=== PATIENT | female | born 2000 | race Caucasian/White ===

== ENCOUNTER 2020-12-19 17:15 | Emergency (ER) | payer SELFPAY ==
--- NOTE | 2020-12-19 17:20 | ED.EAR ---
HPI - Ear Problem General Chief complaint: Ear Stated complaint: Ear Infection Time Seen by Provider: 12/19/20 17:35 Source: patient and RN notes reviewed History of Present Illness HPI Narrative: Patient is a 20-year-old female who presents the urgent care with complaints of bilateral ear pain. Patient states that it started in the left ear and this morning and developed into the right. Patient states that she did have some intermittent dizziness for approximately 3 hours which is since subsided. Patient also reports of a headache in which she has not taken anything [id number] for. Patient denies of any other upper respiratory symptoms. Patient denies of any known Covid contact. Denies of any cough, shortness of breath or chest pain. No other acute complaints. No acute distress noted. Patient aware of the plan of care. Some parts of this dictation were generated by voice recognition software and may contain typographical and/or grammatical inaccuracies. Related Data Home Medications Medication Instructions Recorded Confirmed No Home Medications 12/19/20 12/19/20 Allergies Allergy/AdvReac Type Severity Reaction Status Date / Time No Known Allergies Allergy Verified 12/19/20 17:42 Review of Systems Review of Systems: Narrative: CONSTITUTIONAL: Denies fever, chills, or sweats. EYES: Denies visual changes, redness, or discharge. ENT: Reports of bilateral otalgia CARDIOVASCULAR: Denies chest pain, palpitations, or edema. RESPIRATORY: Denies cough or dyspnea. GASTROINTESTINAL: Denies abdominal pain, nausea, vomiting, or diarrhea. GENITOURINARY: Denies dysuria or hematuria. SKIN: Denies rash or itching. MUSCULOSKELETAL: Denies back pain, joint pain, or myalgia. NEUROLOGIC: Reports of headache All other systems reviewed are negative, except as documented in HPI. PMFSH Comments At the time of my signature, I reviewed and agree with the nursing past medical, surgical, social, and family history. There is no relevant family history pertinent to the patient complaint. Exam Narrative: Exam Narrative: GENERAL: This is a well-nourished, well-developed patient, in no apparent distress. HEAD: normocephalic, atraumatic. EYES: PERRL. Sclera clear/white. Vision is grossly intact. EARS: External ears normal, auditory canals clear and without drainage, TMs normal without perforation. Hearing grossly intact. NOSE: External nose normal with no obvious nasal discharge, nares without redness, no rhinorrhea. THROAT: Mucous membranes moist, posterior pharynx clear. NECK: Neck supple, non-tender without lymphadenopathy RESPIRATORY: Clear to auscultation. Breath sounds equal bilaterally. No wheezes, rales, or rhonchi. SKIN: warm, intact with no suspicious lesions or rash, good texture and turgor. NEURO: awake, alert, and oriented to person, place and time. There were no obvious focal neurologic abnormalities. EXTREMITIES: No clubbing, cyanosis, or edema. Course Vital Signs Vital signs: Vital Signs Temperature 98.1 F 12/19/20 17:30 Pulse Rate 99 12/19/20 17:30 Respiratory Rate 18 12/19/20 17:30 Blood Pressure 120/74 12/19/20 17:30 Pulse Oximetry 100 12/19/20 17:30 Temperature 98.1 F 12/19/20 17:42 Pulse Rate 99 12/19/20 17:42 Respiratory Rate 18 12/19/20 17:42 Blood Pressure 120/74 12/19/20 17:42 Pulse Oximetry 100 12/19/20 17:42 Reviewed Medical Decision Making MDM Narrative Medical decision making narrative: Advised the patient to use an ifmp-[id number]-phmdyyc antihistamine such as Claritin/Benadryl/Zyrtec in conjunction with Flonase nasal spray for bilateral ear pressure. Use a humidifier at night. Do not sleep with the windows open. Take Tylenol/ibuprofen as needed for pain and headache. If you develop any increase in symptoms associated with persistent dizziness, headache, ear pain or other upper respiratory symptoms?remain quarantined and obtain a Covid test. Follow-up with your PCP wit
[2020-12-19 17:30] VITALS: BP 120/74; PULSE 99; RESP 18; TEMP 36.7; O2SAT 100
[2020-12-19 17:42] VITALS: BP 120/74; PULSE 99; RESP 18; TEMP 36.7; O2SAT 100
== END 2020-12-19 17:50 | disposition home or self-care (01) ==
PROVIDERS: Emergency Provider Nurse Practitioner Family
DX: H92.03 Otalgia, bilateral (principal)
CPT/HCPCS: 99211; G0463

== ENCOUNTER 2021-06-11 16:39 | Emergency (ER) | payer SELFPAY ==
[2021-06-11 16:44] VITALS: BP 121/60; PULSE 94; RESP 16; TEMP 36.8; O2SAT 100
[2021-06-11 16:53] VITALS: BP 121/60; PULSE 94; RESP 16; TEMP 36.8; O2SAT 100
--- NOTE | 2021-06-11 17:15 | ED.GENADULT ---
HPI - General Adult General Chief complaint: Dental/Oral Stated complaint: Sores on Tongue Time Seen by Provider: 06/11/21 16:50 Source: patient, RN notes reviewed and old records reviewed Mode of arrival: ambulatory Limitations: no limitations History of Present Illness HPI narrative: 21 year old female presents to [facility] care with complaints of sores to the right side of her tongue for the past 4 days. She reports that previously 2 weeks ago she had what she thought were canker sores on the left side of the bottom of mouth. She denies any fevers, chills or sweats or any other symptoms. Patient states that pain is making it difficult to eat. MD complaint: stomatitis Onset (ago): week(s) Location: mouth Severity scale (1-10): 7 Quality: other (pinching) Pain Consistency: constant Relieving factors: none Exacerbating factors: eating Associated symptoms: denies other symptoms Treatments prior to arrival: other (salt water gargles) Related Data Allergies Allergy/AdvReac Type Severity Reaction Status Date / Time No Known Allergies Allergy Verified 06/11/21 16:52 Review of Systems Review of Systems: Narrative: CONSTITUTIONAL: Denies fever, chills, or sweats. EYES: Denies visual changes, redness, or discharge. ENT: Denies rhinorrhea, congestion, sore throat, or otalgia.positive for lesions to mouth and tongue CARDIOVASCULAR: Denies chest pain, palpitations, or edema. RESPIRATORY: Denies cough or dyspnea. GASTROINTESTINAL: Denies abdominal pain, nausea, vomiting, or diarrhea. GENITOURINARY: Denies dysuria or hematuria. SKIN: Denies rash or itching. MUSCULOSKELETAL: Denies back pain, joint pain, or myalgia. NEUROLOGIC: Denies headache, numbness, or weakness. PSYCHIATRIC: Denies anxiety or depression. All systems reviewed & are unremarkable except as noted in HPI and below [facility] Past Medical History Medical History (Updated 06/12/21 @ 00:00 by Marco Antonio Waterman) No significant past medical history Surgical History Surgical History (Updated 06/11/21 @ 17:16 by Kareen Rogers NP) No history of previous surgery Family History Family History (Updated 06/14/21 @ 08:23 by Kareen Rogers NP) Other No significant family history Social History Social History (Updated 06/11/21 @ 17:17 by Kareen Rogers NP) Tobacco type: e-cigarettes/vaping Alcohol intake: current Alcohol use details: Social Living arrangements: with family Gender identity (if verbalized by the patient): Female Comments At time of signature, agree with nursing past medical, surgical, social and family history. There is no relevant family history pertinent to the presenting complaint Exam Narrative: Exam Narrative: GENERAL: Well-appearing, well-nourished, and in no acute distress. HEAD: Normocephalic, atraumatic. EYES: PERRLA and EOMI. ENT: Nares clear, no rhinorrhea or epistaxis. Mucous membranes moist.TM's normal with good light reflex, throat pink with no exudates or lesions or tonsil enlargement, right side of tongue red with 2 small white lesions noted, no drainage from sites. NECK: Supple. no lymphadenopathy CHEST: Clear to auscultation. No respiratory distress.SAO2 100% on room air HEART: Regular rate and rhythm. No murmur heard. Normal peripheral pulses. ABDOMEN: Soft, nontender, nondistended, normal active bowel sounds. EXTREMITIES: Normal range of motion. No edema. SKIN: Warm, dry, no rash. NEURO: No focal deficits. Alert and oriented x3. Course Vital Signs Vital signs: Vital Signs Temperature 36.8 C 06/11/21 16:44 Pulse Rate 94 06/11/21 16:44 Respiratory Rate 16 06/11/21 16:44 Blood Pressure 121/60 06/11/21 16:44 Pulse Oximetry 100 06/11/21 16:44 Temperature 36.8 C 06/11/21 16:53 Pulse Rate 94 06/11/21 16:53 Respiratory Rate 16 06/11/21 16:53 Blood Pressure 121/60 06/11/21 16:53 Pulse Oximetry 100 06/11/21 16:53 Medical Decision Making Differential Diagnosis Differen
== END 2021-06-11 17:35 | disposition home or self-care (01) ==
PROVIDERS: Emergency Provider Registered Nurse
DX: K12.0 Recurrent oral aphthae (principal); F17.200 Nicotine dependence, unspecified, uncomplicated
CPT/HCPCS: 99213; G0463

== ENCOUNTER 2021-09-04 15:09 | Emergency (ER) | payer SELFPAY ==
[2021-09-04 15:20] VITALS: BP 118/73; PULSE 93; RESP 16; TEMP 36.7; O2SAT 98
--- NOTE | 2021-09-04 16:20 | ED.GENADULT ---
HPI - General Adult General Chief complaint: Upper Respiratory Infection Stated complaint: Tonsil Pain Time Seen by Provider: 09/04/21 16:12 Source: patient and RN notes reviewed Mode of arrival: ambulatory Limitations: no limitations History of Present Illness HPI narrative: Patient presents today complaining of a tickling on her left tonsil that started today. When she looked back in the back of her throat she noticed holes in her tonsils and a white and black material there and became alarmed. She came here for evaluation of her tonsil. Denies pain. Denies any sick symptoms. MD complaint: Tonsil evaluation Related Data Home Medications Medication Instructions Recorded Confirmed No Home Medications 09/04/21 09/04/21 Allergies Allergy/AdvReac Type Severity Reaction Status Date / Time No Known Allergies Allergy Verified 09/04/21 15:32 Review of Systems Review of Systems: CONSTITUTIONAL: Denies body aches, fever, chills, or sweats. EYES: Denies visual changes, redness, or discharge. ENT: Denies rhinorrhea, congestion, sore throat, or otalgia. Tonsil irritation CARDIOVASCULAR: Denies chest pain, palpitations, or edema. RESPIRATORY: Denies cough or dyspnea. GASTROINTESTINAL: Denies abdominal pain, nausea, vomiting, or diarrhea. GENITOURINARY: Denies dysuria or hematuria. SKIN: Denies rash, itching, or wounds. MUSCULOSKELETAL: Denies back pain, joint pain, or myalgia. NEUROLOGIC: Denies headache, numbness, tingling, or weakness. PSYCH: Denies depression or anxiety. [facility] Past Medical History Medical History No significant past medical history Surgical History Surgical History No history of previous surgery Family History Family History Other No significant family history Social History Social History Tobacco type: e-cigarettes/vaping Alcohol intake: current Alcohol use details: Social Gender identity (if verbalized by the patient): Female Comments At time of signature, I have reviewed and agree with nursing past medical, surgical, social and family history unless otherwise noted. Please see nursing chart for further information. There is no relevant family history pertinent to the presenting complaint Exam Narrative: GENERAL: Well-appearing, well-nourished, and in no acute distress. HEAD: Normocephalic, atraumatic. EYES: EOMI. No redness or drainage. Conjunctivae normal. ENT: Mucous membranes pink and moist. Nares clear. No rhinorrhea. TMs normal bilaterally. Throat normal. Left tonsil is normal. Patient showed a picture of the tonsil on her phone with obvious tonsil stone present. Tonsil stone is not present currently. Uvula midline. NECK: Normal AROM. Supple. No lymphadenopathy. CHEST: No respiratory distress. EXTREMITIES: Normal range of motion. No edema. SKIN: Warm, dry, no rash. Capillary refill normal. Normal skin turgor. NEURO: No focal deficits. Alert and oriented x3. Gait steady. PSYCH: Normal affect. No signs of depression or anxiety. Course Vital Signs Vital signs: Vital Signs Temperature 98.1 F 09/04/21 15:20 Pulse Rate 93 09/04/21 15:20 Respiratory Rate 16 09/04/21 15:20 Blood Pressure 118/73 09/04/21 15:20 Pulse Oximetry 98 09/04/21 15:20 Temperature 98.1 F 09/04/21 15:20 Pulse Rate 93 09/04/21 15:20 Respiratory Rate 16 09/04/21 15:20 Blood Pressure 118/73 09/04/21 15:20 Pulse Oximetry 98 09/04/21 15:20 Reviewed Medical Decision Making Differential Diagnosis Differential Diagnosis: Tonsil stone, tonsillitis Vital Signs Vital Signs: Vital Signs Temperature 98.1 F 09/04/21 15:20 Pulse Rate 93 09/04/21 15:20 Respiratory Rate 16 09/04/21 15:20 Blood Pressure 118/7
== END 2021-09-04 16:27 | disposition home or self-care (01) ==
PROVIDERS: Emergency Provider Nurse Practitioner
DX: J35.8 Other chronic diseases of tonsils and adenoids (principal); F17.200 Nicotine dependence, unspecified, uncomplicated
CPT/HCPCS: 99212; G0463

== ENCOUNTER 2022-02-14 12:50 | Outpatient (CLI) | payer OTHER, SELFPAY ==
--- NOTE | ~2022-02-14 | XR_ITS ---
EXAMINATION: XR chest 2V 02/14/2022 13:07 INDICATION: Chest pressure PROCEDURE: 2 view chest COMPARISON: No prior studies for comparison. FINDINGS: The lungs are clear. The cardiomediastinal silhouette is within normal limits. There are no pleural effusions. There is no pneumothorax suspected. IMPRESSION: 1: NO ACUTE CARDIOPULMONARY DISEASE. Reviewed, dictated and finalized at location B.
--- NOTE | 2022-02-14 13:13 | ECG_ITS ---
Measurements Intervals [place] Rate: 85 P: 61 WA: 170 QRS: 61 QRSD: 101 T: 14 QT: 354 QTc: 423 Interpretive Statements SINUS RHYTHM WITH OCCASIONAL SUPRAVENTRICULAR PREMATURE COMPLEXES LEFT ATRIAL ENLARGEMENT [-0.15mV P WAVE IN V1/V2] POSSIBLE RIGHT VENTRICULAR CONDUCTION DELAY [RSR (QR) IN V1/V2] NONSPECIFIC T-WAVE ABNORMALITY NO PREVIOUS ECG AVAILABLE FOR COMPARISON Electronically Signed On 02-14-2022 18:46:10 CDT by Karrie Vasquez M.D.
== END 2022-02-14 12:51 | disposition home or self-care (01) ==
LOC: ANHIMG 12:53
PROVIDERS: Visit Provider Nurse Practitioner
DX: R07.89 Other chest pain (principal); R94.31 Abnormal electrocardiogram [ECG] [EKG]
CPT/HCPCS: 71046; 93005

== ENCOUNTER 2025-08-08 13:25 | Emergency (ER) | payer SELFPAY ==
[2025-08-08 13:32] VITALS: BP 119/86; PULSE 95; RESP 16; TEMP 36.3; O2SAT 100
--- NOTE | 2025-08-08 13:37 | ED.URI ---
HPI - URI/Sore Throat General Chief Complaint: Upper Respiratory Infection Stated Complaint: sore throat Time Seen by Provider: 08/08/25 13:37 Source: patient, RN notes reviewed and old records reviewed Mode of arrival: ambulatory Limitations: no limitations History of Present Illness HPI Narrative: 25-year-old female presents to the [facility] with 1 week history of a sore throat, reports head congestion and a cough. Has tried some sinus medication. Denies fevers. Reports taking a home COVID test which she reports negative. Reports that is a strep carrier Treatments prior to arrival: cold medicine Related Data Home Medications ?Medication ?Instructions ?Recorded ?Confirmed ?Last Taken ?Type No Home Medications 09/04/21 08/08/25 Unknown History Allergies Allergy/AdvReac Type Severity Reaction Status Date / Time No Known Allergies Allergy Verified 08/08/25 13:34 Review of Systems Review of Systems: All systems reviewed & are unremarkable except as noted in HPI and below Constitutional: Constitutional: Reports no additional constitutional complaints ENT: Reports as per HPI Cardiovascular: Cardiovascular: Reports no additional cardiovascular complaints, Denies chest pain and Denies dyspnea Respiratory: Respiratory: Reports no additional respiratory complaints, Denies chest congestion, Denies cough and Denies dyspnea Musculoskeletal: Musculoskeletal: Reports no additional musculoskeletal complaints Integumentary/Breasts: Skin/Breast: Reports system reviewed and no additional complaints, except as docu PMFSH Past Medical History Medical History No significant past medical history Surgical History Surgical History No history of previous surgery Family History Family History Other No significant family history Social History Social History Tobacco type: e-cigarettes/vaping Alcohol intake: current Alcohol use details: Social Living arrangements: with family Gender identity (if verbalized by the patient): Female Comments At the time of my signature, I reviewed and agree with the nursing past medical, surgical, social, and family history. There is no relevant family history pertinent to the patient complaint. Exam Const: General: cooperative, healthy appearing, comfortable, no acute distress, well developed, alert and well nourished Nutritional Appearance: well nourished Orientation/consciousness: patient oriented x3 Limitations: no limitations HENMT: Head: normal to inspection Ears: hearing grossly normal bilaterally, external ears normal, TM's normal bilaterally, EAC's normal, mastoids normal and no periauricular adenopathy Face/Nose/Sinus: Normal external nose present, Normal nares present and Normal nasal mucous membranes and turbinates present Mouth: Yes Normal oral and palatal mucosa present, Yes lip normal, Yes tongue normal and Yes moist mucous membranes Throat: posterior oropharynx normal, uvula midline and no uvular edema Eyes: General: appearance normal, both eyes and all related structures Alignment and Position: alignment normal Neck: Neck: normal visual inspection, full ROM, no lymphadenopathy and no meningeal signs Chest: Chest palpation & inspection: normal inspection of the chest Resp: Effort & Inspection: normal respiratory effort and able to speak in complete sentences Auscultation: clear to auscultation bilaterally, no crackles, no rales, no rhonchi and no wheezes Cardio: Rate: regular rate Skin: General skin exam: normal color and no rashes or lesions noted Neuro: General: patient oriented x3, gait normal, moves all extremities and no meningeal signs Cognition (Neuro): normal cognition Speech: normal speech Gait exam (Neuro): Normal gait present Extrem: General: normal to inspection, full ROM, capillary refill normal and normal gait Psych: Appearance: grossly normal and well kempt Mental Status: mental status grossly normal Speech and movement: Normal speech and movement present and Clear speech present Affect: normal affect Attitude: cooperative Course Course Level of Care: Express Care Visit Vital Signs Vital signs: Vital Signs Temperature 97.4 F L 08/08/25 13:32 Pulse Rate 95 08/08/25 13:32 Respiratory Rate 16 08/08/25 13:32 Blood Pressure 119/86 08/08/25 13:32 Pulse Oximetry 100 08/08/25 13:32 Oxygen Delivery Room Air 08/08/25 13:32 Temperature 97.4 F L 08/08/25 13:32 Pulse Rate 95 08/08/25 13:32 Respiratory Rate 16 08/08/25 13:32 Blood Pressure 119/86 08/08/25 13:32 Pulse Oximetry 100 08/08/25 13:32 Oxygen Delivery Room Air 08/08/25 13:32 Reviewed MDM - URI/Sore Throat MDM Narrative Medical decision making narrative: Patient sitting in exam room. Patient is nontoxic, vitals stable. Patient presents with 1 week history of URI symptoms. Strep negative. Due to not having insurance patient does not want have a culture done. No acute findings were noted on exam. No bogginess or erythema to nasal passage. No erythema posterior pharynx. No edema noted. Patient appropriate for outpatient treatment with close follow-up Discharge instructions reviewed with patient, as well as provided in writing per nursing staff. The instructions also include specific and strict return/GO TO THE ER as well as f/u information. All questions have been answered, and the patient deny any further questions with discharge and discharge plan. Some parts of this dictation were generated by voice recognition software and may contain typographical and/or grammatical inaccuracies. Differential Diagnosis Differential diagnosis: Likely upper respiratory infection, otitis media, sinusitis, viral infection, bronchitis, influenza and pharyngitis Lab Data Labs: Lab Results 08/08/25 Range/Units 13:36 POC Grp A Strep Screen Negative (Negative) Reviewed Critical Care Time Critical Care Time Critical Care Time: No Discharge Plan Discharge Clinical Impression: Pharyngitis Patient Disposition: Home Condition: Stable Instructions: Pharyngitis (ED) Additional Instructions: It is very important to treat your symptoms. Drink plenty of water, Gatorade, Pedialyte, ice pops or Jell-O. -Alternate Tylenol and Motrin per package directions for fever or pain. You can alternate every 4 hours -Antihistamine medication such as Zyrtec/Claritin/Mignon during the day can help improve symptoms. -doing daily nasal irrigations can help relieve pressure your sinuses. Things like a Neti pot -Use Flonase twice a day for 5 days then daily to help reduce the inflammation and dry up your sinuses. -You can also use Mucinex. Be sure to drink plenty of water with this medication at least 8 ounces with every dose and it is important to drink 8 to 10 glasses of water per day. Water is a natural decongestant -Eat and drink things that are easy to swallow, like tea or soup, or popsicles. -Oral rinses such as: Salt water gargles and/or may use topical anesthetic (eg. Chloraseptic spray) or lozenges to relieve dryness or throat pain). -Frequent hand washing or hand conflict resolution professional is one of the best ways to prevent spread of infection. -Using a vaporizer or humidifier at night will also help thin secretions and help with coughing up phlegm. -Follow up with primary care provider in 7-10 days if condition is not improving - For new or worsening symptoms go directly to the nearest ER Patient Language: Urdu Prescriptions: No Action No Home Medications Follow-up/Referrals: PHYSICIAN,LION TAMER [Primary Care Provider, Internal Medicine] Stand Alone Forms: Work/School Release IP Time of Disposition: 14:18
[2025-08-08 13:49] LABS: EDSTREPNEGPOS1 Negative (Negative)
== END 2025-08-08 14:21 | disposition home or self-care (01) ==
PROVIDERS: Emergency Provider Nurse Practitioner
DX: J02.9 Acute pharyngitis, unspecified (principal); F17.290 Nicotine dependence, other tobacco product, uncomplicated
CPT/HCPCS: 87880; 99212; G0463